=== PATIENT | female | born 1995 | race Caucasian/White ===

== ENCOUNTER 2020-09-01 10:03 | Inpatient (IN) | payer MEDICAID, SELFPAY ==
[~2020-09-01] VITALS: Ht 167.6 cm; Wt 44.5 kg
[2020-09-01 10:07] VITALS: BP 140/90
--- NOTE | 2020-09-01 10:15 | NUR ---
PT W/C ASSISTED TO BED 11
--- NOTE | 2020-09-01 10:25 | NUR ---
25 Y/O FEMALE BIB FAMILY C/O ABD PAIN 01/12 THAT STARTED YESTERDAY. PT STATES SHE IS NOT ABLE TO DESCRIBE WHAT THE PAIN FEELS LIKE, ONLY STATES "IT FEELS LIKE IM GOING TO ". PT DENIES TAKING ANYTHING FOR PAIN. +N/V, PER PT 24TIMES IN 24H. ABD IS FLAT, SOFT, AND TENDER ON PALPATION WITH ACTIVE BOWEL SOUNDS X4 QUADS. PT IS GUARDING. PT DENIES DIARRHEA. PT STATES THAT SHE IS DEPRESSED HER MOM 07/26/20. PT IS VERY THIN. DENIES EATING DISORDER, DENIES SUICIDAL THOUGHTS, AND DENIES NOT EATING TO HURT HERSELF. WHEN ASKED WHEN WAS THE LAST TIME SHE ATE, "I DONT KNOW, I DONT EAT". SKIN IS WARM DRY AND INTACT. PT A/O X4 WITH EVEN AND UNLABORED RESPIRATIONS. PT IN GOWN AND ON PROCESS CONTROLLER. PT GIVEN EMESIS BAG. DENIES PMH NKA
--- NOTE | 2020-09-01 10:29 | NUR ---
DR BENAVIDES AT BEDSIDE EVALUATING PT
[2020-09-01] MEDS ORDERED: MORPHINE SULFATE 4 MG/ML SYR IVP ONE (10:35)
[2020-09-01] MEDS ORDERED: ONDANSETRON 4 MG/2 ML VIAL IVP ONE (10:35)
[2020-09-01] MEDS ORDERED: NACL 0.9% 1,000 ML IV ONE (10:35)
--- NOTE | 2020-09-01 10:40 | NUR ---
20 G IV ESTABLISHED. BLOOD DRAW COLLECTED THROUGH IV AND SAMPLES GIVEN TO INCOMING FREIGHT CLERK
--- NOTE | 2020-09-01 10:47 | NUR ---
PT AMULATED WITH ASSIST TO RESTROOM FOR URINE SAMPLE
[2020-09-01 10:49] LABS: BASOPHILS % (AUTO) 0.2 % (0.0-2.0); HEMATOCRIT 44.6 % (36-48); HEMOGLOBIN 14.8 g/dL (12.0-16.0); LYMPHOCYTES % (AUTO) 7.9 % (20.5-51.1); MEAN CORPUSCULAR HEMOGLOBIN 31 pg (27-31); MEAN CORPUSCULAR HGB CONC 33 g/dL (33-37); MEAN CORPUSCULAR VOLUME 92.2 fL (80-94); MONOCYTES # (AUTO) 0.6 K/uL (0.8-1.0); MONOCYTES % (AUTO) 4.5 % (1.7-9.3); NEUTROPHILS # (AUTO) 11.4 K/uL (1.8-7.7); NEUTROPHILS % (AUTO) 87.4 % (42.2-75.2); PLATELET COUNT (AUTO) 158 K/uL (140-450); RED BLOOD CELL COUNT(AUTO) 4.84 MIL/uL (4.20-5.40); RED CELL DISTRIBUTION WIDTH 13.2 % (11.6-13.7)
[2020-09-01 10:58] LABS: ANION GAP 24.4 (8-16); CARBON DIOXIDE 24.4 mmol/L (21-32); CREATININE 1.1 mg/dL (0.6-1.3); POTASSIUM 3.8 mmol/L (3.5-5.1)
[2020-09-01 11:04] LABS: ALBUMIN 5.4 g/dL (3.4-5.0); TOTAL BILIRUBIN 0.8 mg/dL (0.0-1.0)
--- NOTE | 2020-09-01 11:19 | NUR ---
PT TAKEN TO CT VIA W/C
--- NOTE | 2020-09-01 11:36 | NUR ---
PT BACK FROM CT, CONNECTED TO MONITOR AND FLUIDS
[2020-09-01 11:39] LABS: APPEARANCE,URINE HAZY (CLEAR); BILIRUBIN,URINE 1+ (NEGATIVE); BLOOD, URINE 1+ (NEGATIVE); COLOR,URINE YELLOW (YELLOW); NITRITE, URINE NEGATIVE (NEGATIVE); PH,URINE 6.5 (5.0-9.0); UGLUCOSE NEGATIVE (NEGATIVE)
[2020-09-01 11:55] LABS: LEUKOCYTE ESTERASE ,URINE 1+ (NEGATIVE)
[2020-09-01 11:56] LABS: RBC,URINE 0-5 /HPF (0-5)
[2020-09-01 11:57] LABS: WBC,URINE 20-60 /HPF (0-5)
[2020-09-01] MEDS ORDERED: DEXT 5% / NACL 0.45% 1,000 ML IV ONE (12:15)
[2020-09-01] MEDS ORDERED: cefTRIAXone 1,000 MG VIAL ONE (12:37)
--- NOTE | 2020-09-01 12:48 | NUR ---
PT RESTING IN BED WITH EVEN AND UNLABORED RESPIRATIONS. PT DENIES PAIN AT THIS TIME. PT ON GRAVE CLEANER, VSS. BED IN LOWEST POSITION, BRAKES LOCKED, X1 SIDERAIL UP. WILL CONTINUE TO MONITOR.
[2020-09-01] MEDS ORDERED: POTASSIUM CHL 10 MEQ/D5-1/2NS 1,000 ML IV ONE (13:00)
[2020-09-01 13:36] LABS: MAGNESIUM 2.2 mg/dL (1.8-2.4)
--- NOTE | 2020-09-01 13:53 | NUR ---
EMBER DEAL SAMPLE COLLECTED AND WALKED TO LAB
[2020-09-01] MEDS ORDERED: ACETAMINOPHEN 325 MG TAB PO PRN (14:00)
[2020-09-01] MEDS ORDERED: LORazepam 2 MG/ML VIAL IM/IVP PRN (14:00)
[2020-09-01] MEDS ORDERED: ZOLPIDEM 5 MG TAB PO PRN (14:00)
[2020-09-01] MEDS ORDERED: HYDROcodone/APAP 5/325 MG 1 TAB TAB PO PRN (14:00)
[2020-09-01] MEDS ORDERED: DOCUSATE SODIUM 100 MG GELCAP PO PRN (14:00)
--- NOTE | 2020-09-01 14:37 | NUR ---
US AT BEDSIDE
[2020-09-01] MEDS: NACL 0.9% 1,000 ML IV SCH ×2 (14:54→23:41)
--- NOTE | 2020-09-01 15:10 | NUR ---
RAD AT BEDSIDE
--- NOTE | 2020-09-01 16:30 | NUR ---
DR TREVINO AT BEDSIDE
[2020-09-01 16:59] LABS: BARBITURATE, URINE NEGATIVE ng/ml (NEG <=200); BENZODIAZEPINE, URINE NEGATIVE ng/mL (NEG <=200); CANNABINOID, URINE POSITIVE ng/mL (NEG <=50); COCAINE, URINE NEGATIVE ng/mL (NEG <=300); OPIATE, URINE NEGATIVE ng/mL (NEG <=2000); PHENCYCLIDINE SCREEN,URINE NEGATIVE ng/mL (NEG <=25)
--- NOTE | 2020-09-01 17:57 | NUR ---
PT GIVEN DINNER TRAY. PT IS SITTING IN BED WITH EVEN AND UNLABORED RESPIRATIONS. DENIES PAIN.
[2020-09-01 18:20] LABS: FREE T4 (FREE THYROXINE) 1.08 ng/dL (0.76-1.46); THYROID STIMULATING HORMONE 1.47 uIU/mL (0.34-3.74)
[2020-09-01] MEDS: ONDANSETRON 4 MG/2 ML VIAL IVP PRN ×2 (18:54→21:00)
[2020-09-01 18:57] LABS: CHOL/HDL RATIO 3.4 (1-4.5)
--- NOTE | 2020-09-01 19:14 | NUR ---
GAVE REPORT TO CESILIA ORTIZ, TRANSFER OF CARE AT THIS TIME.
--- NOTE | 2020-09-01 19:44 | NUR ---
report given to Niya ORTIZ from Tele unit . pt currently a/o x 4, gcs 15. able to move all extremities freely. IV sites patent.
--- NOTE | 2020-09-01 19:45 | NUR ---
pt will be admitted to [facility] under the care of Dr. Aguilar. report given to Niya ORTIZ. belongings to be sent with pt. IV sites are patent.
--- NOTE | 2020-09-01 19:55 | NUR ---
RECEIVED REPORT FROM ER NURSE. PT IS AWAKE ,ALERT, ORIENTED X4, NO ACUTE DISTRESS NOTED. RESPIRATION EVEN UNLABORED. CC: ABDOMINAL PAIN FOR 2-3DAYS WITH NAUSEA. DX: PANCREATITIS, GASTRITIS, UTI, APPENDICITIS. LUNGS CLEAR ON AUSCULTATION. BOWEL SOUNDS PRESENT IN ALL 4 QUADRANT. DENIES PAIN. NEEDS WELL ATTENDED. MRSA SCREENING DONE. WILL CONTINUE TO MONITOR.
--- NOTE | 2020-09-01 21:03 | NUR ---
PT [id number] OF NAUSEA AND VOMITING, ZOFRAN PRN ADMINISTERED PER MD ORDERED.
[2020-09-02] VITALS: BP 112/67
[2020-09-02 04:00] VITALS: BP 113/76
[2020-09-02 06:02] LABS: BASOPHILS % (AUTO) 0.2 % (0.0-2.0); EOSINOPHILS % (AUTO) 0.1 % (0.0-4.0); HEMATOCRIT 34.9 % (36-48); HEMOGLOBIN 11.6 g/dL (12.0-16.0); LYMPHOCYTES # (AUTO) 2.2 K/uL (2.5-16.5); LYMPHOCYTES % (AUTO) 25.6 % (20.5-51.1); MEAN CORPUSCULAR HEMOGLOBIN 31 pg (27-31); MEAN CORPUSCULAR HGB CONC 33 g/dL (33-37); MEAN CORPUSCULAR VOLUME 92.7 fL (80-94); MONOCYTES # (AUTO) 0.5 K/uL (0.8-1.0); MONOCYTES % (AUTO) 6.4 % (1.7-9.3); NEUTROPHILS # (AUTO) 5.7 K/uL (1.8-7.7); NEUTROPHILS % (AUTO) 67.7 % (42.2-75.2); PLATELET COUNT (AUTO) 106 K/uL (140-450); RED BLOOD CELL COUNT(AUTO) 3.76 MIL/uL (4.20-5.40); RED CELL DISTRIBUTION WIDTH 13.3 % (11.6-13.7); WHITE BLOOD COUNT (AUTO) 8.4 K/uL (4.8-10.8)
[2020-09-02 06:12] LABS: MAGNESIUM 1.8 mg/dL (1.8-2.4); PHOSPHORUS 2.7 mg/dL (2.5-4.9)
--- NOTE | 2020-09-02 07:40 | NUR ---
RECEIVED BEDSIDE REPORT FROM DRY CHAIN OFFBEARER NURSE. PATIENT RIGHT LATERAL IN BED, SLEEPING, ANSWERS TO NAME, AND ABLE TO MAKE NEEDS KNOWS. BREATHING EVEN AND UNLABORED, NO SINGS OF ACUTE DISTRESS NOTED, ON RA. L FA 20G, INFUSING NS @ 100 ML/HR. BED IN LOW POSITION, HIGH MAN IN PLACE, SAFETY MEASURES IN PLACE.
[2020-09-02 07:43] LABS: ANION GAP 12.8 (8-16); CREATININE 0.9 mg/dL (0.6-1.3); POTASSIUM 3.8 mmol/L (3.5-5.1)
[2020-09-02 08:00] VITALS: BP 108/65
--- NOTE | 2020-09-02 09:47 | NUR ---
DR TREVINO AT BEDSIDE, ROUNDING ON PATIENT. [facility] THIS AM OF 8.2, DR TREVINO AWARE, NO NEW ORDERS.
[2020-09-02] MEDS: NACL 0.9% 1,000 ML IV SCH ×2 (10:00→20:25)
--- NOTE | 2020-09-02 11:20 | NUR ---
PATIENT HAS BEEN SCREENED AND CATEGORIZED HIGH NUTRITION RISK. PATIENT WILL BE SEEN WITHIN 1-2 DAYS OF ADMISSION. 09/02/20 - 09/03/20 WILI SEPULVEDA MBA, RD
[2020-09-02 12:00] VITALS: BP 108/72
[2020-09-02 16:00] VITALS: BP 123/87
--- NOTE | 2020-09-02 19:25 | NUR ---
ENDORSED TO [facility]IMAL [facility] OFFICE SUPERVISOR NURSE FOR CONTINUITY OF CARE. PATIENT STABLE AT THIS TIME.
[2020-09-02 20:00] VITALS: BP 108/65
--- NOTE | 2020-09-02 20:00 | NUR ---
RECEIVED REPORT FROM DAY SHIFT RN; PT AWAKE SITTING UP IN BED, NO ACUTE DISTRESS NOTED @ THIS TIME. PT AAOX4, DEPRESSED R/T MOTHERS . PT DENIES SUICIDAL IDEATION. PT AMB IN ROOM. SR ON MONITOR, PALPABLE PULSES. LUNGS CLEAR TO AUSCULTATION. ABD SOFT NON DISTENDED. SKIN INTACT. IV TO L FA PATENT INTACT. BED LOCKED IN LOWEST POSITION WILL CONTINUE TO OBSERVE
[2020-09-02] MEDS: MORPHINE SULFATE 2 MG/ML SYR IVP PRN (21:43)
--- NOTE | 2020-09-02 22:00 | NUR ---
PT UPDATED REGARDING PLAN OF CARE. NO S/S OF ACUTE DISTRESS NOTED. WILL CONTINUE TO OBSERVE.
[2020-09-03] VITALS: BP 103/68
--- NOTE | 2020-09-03 00:15 | NUR ---
PT AWAKE SITTING UP IN BED, WATCHING TELEVISION. PT DENIES PAIN @ THIS TIME. WILL CONTINUE TO MONITOR.
--- NOTE | 2020-09-03 03:00 | NUR ---
PT HAS EYES CLOSED; NO ACUTE DISTRESS NOTED. WILL CONTINUE TO OBSERVE.
[2020-09-03 04:00] VITALS: BP 115/72
--- NOTE | 2020-09-03 06:00 | NUR ---
PT REFUSED LABS THIS AM.
[2020-09-03] MEDS: NACL 0.9% 1,000 ML IV SCH ×3 (06:15→18:06)
--- NOTE | 2020-09-03 07:20 | NUR ---
RECEIVED PATIENT FROM NIGHT NURSE. PATIENT IN BED AWAKE AND ALERT. RESP EVEN AND UNLABORED ON ROOM AIR. DENIED OF PAIN AT THIS TIME. PATIENT ABLE TO AMBULATE WITH STEADY GAIT TO THE BATHROOM. NO SUICIDAL IDEATION AT THIS TIME. PATIENT ABLE TO MAKE NEEDS KNOWN. LFA 20G INFUSING NS 100ML/HR. PLAN OF CARE DISCUSSED, PATIENT VERBALIZED UNDERSTANDING. HOB ELEVATED. SAFETY MEASURES IN PLACE. CALL LIGHT WITHIN REACH. WILL CONTINUE TO MONITOR.
[2020-09-03 08:00] VITALS: BP 136/79
--- NOTE | 2020-09-03 09:15 | NUR ---
PATIENT IN BED AWAKE AND ALERT. RESP EVEN AND UNLABORED ON ROOM AIR. DENIED OF PAIN AT THIS TIME. PATIENT ABLE TO MAKE NEEDS KNOWN. LFA 20G INTACT AND PATENT INFUSING NS 100ML/HR. NO NOTED DISTRESS AT THIS TIME. PLAN OF CARE DISCUSSED, PATIENT VERBALIZED UNDERSTANDING. CALL LIGHT WITHIN REACH. WILL CONTINUE TO MONITOR.
--- NOTE | 2020-09-03 11:45 | NUR ---
PATIENT IN BED WATCHING TV, COMFORTABLE AT THIS TIME. DR TEAGUE SEEN PATIENT. NO CONCERNS AT THIS TIME. PATIENT DENIED OF PAIN OR DISCOMFORT. CALL LIGHT WITHIN REACH. WILL CONTINUE TO MONITOR.
[2020-09-03 12:00] VITALS: BP 131/89
--- NOTE | 2020-09-03 13:49 | NUR ---
PATIENT REQUESTED TO HAVE REGULAR DIET. DR JAIME MADE AWARE AND APPROVED ORDER. ORDER CARRIED OUT.
--- NOTE | 2020-09-03 14:11 | NUR ---
PATIENT STATED FEELING ANXIOUS AND ASKING FOR HER PLAN OF CARE. DR JAIME WAS MADE AWARE AND WILL POSSIBLE DISCHARGE PATIENT TOMORROW. DR TEAGUE HAD SEEN PATIENT AND DID NOT PLACE A 5150 AT THIS TIME. PATIENT MADE AWARE OF DR JAIME PLAN. PATIENT REQUESTING TO LEAVE AGAINST MEDICAL ADVICE. DR JAIME MADE AWARE.
--- NOTE | 2020-09-03 14:35 | NUR ---
PATIENT WAS INFORMED OF RISKS OF LEAVING AMA. PATIENT WAS ALLOWED TIME TO MAKE HER DECISION. WILL CONTINUE TO MONITOR.
--- NOTE | 2020-09-03 14:43 | NUR ---
09/03/20 RD INITIAL ASSESSMENT COMPLETED PLEASE REFER TO NUTRITION ASSESSMENT UNDER CARE ACTIVITY FOR ESTIMATED NUTRITIONAL NEEDS. 1. CONTINUE REGULAR DIET TOLERATED 2. RECOMMENDED ENSURE TID VANILLA 3. [facility] WILL PROVIDE PATIENTS FOOD PREFERENCE 4. ENCOURAGE PO INTAKE OVER 50% 5. RD TO FOLLOW-UP 2-3 DAYS, HIGH RISK RENNY LIU, RD
--- NOTE | 2020-09-03 15:50 | NUR ---
PATIENT DECIDED TO STAY. DR JAIME MADE AWARE.
[2020-09-03 16:00] VITALS: BP 120/74
--- NOTE | 2020-09-03 18:10 | NUR ---
PATIENT IN BED WATCHING TV. RESP EVEN AND UNLABORED ON ROOM AIR. DENIED ANY PAIN OR DISCOMFORT. PATIENT IN BETTER MOOD. DINNER TRAY GIVEN. PATIENT ENCOURAGED TO EAT TOLERATED AND CALL FOR HELP NEEDED. PATIENT VERBALIZED UNDERSTANDING. CALL LIGHT WITHIN REACH. WILL CONTINUE TO MONITOR.
--- NOTE | 2020-09-03 19:15 | NUR ---
ENDORSED PATIENT TO NIGHT NURSE. PATIENT IN STABLE CONDITION.
--- NOTE | 2020-09-03 19:20 | NUR ---
RECEIVED BEDSIDE REPORT FROM JAISON ANDERSON RN FOR CONTINUITY OF CARE. PT IS AWAKE AND ALERT, A&OX4. LAYING IN SUPINE POSITION WITH BREATHING UNLABORED. ON RA. PT IS AMBULATORY INDEPENDENTLY. UNIVERSAL PRECAUTIONS IN PLACE. SKIN IS WARM, DRY, AND INTACT. IV IS IN THE LEFT FOR 22 GAUGE RUNNING NS AT 100 ML PER HOUR PER ORDER. STANDARD PRECAUTIONS IN PLACE. PT IS STABLE. PLAN OF CARE DISCUSSED.
[2020-09-03 20:00] VITALS: BP 110/75
[2020-09-03] MEDS: ONDANSETRON 4 MG/2 ML VIAL IVP PRN (20:16)
[2020-09-03] MEDS: MORPHINE SULFATE 2 MG/ML SYR IVP PRN (20:16)
--- NOTE | 2020-09-03 20:16 | NUR ---
PT STATES SHE HAS PAIN IN HER LOWER ABDOMEN THAT IS SHARP AND AT A SCALE OF 8/10. PT WAS GIVEN MORPHINE IVP FOR SEVERE PAIN. BP WAS 110/75 PRIOR TO ADMINISTRATION OF MEDICATION. PT ALSO STATES SHE IS NAUSEOUS AND WAS GIVEN ZOFRAN IVP. MEDICATION EDUCATION WAS PROVIDED AND PT VERBALIZED UNDERSTANDING.
[2020-09-03] MEDS ORDERED: MIRTAZAPINE 15 MG TAB PO SCH (21:00)
--- NOTE | 2020-09-03 22:00 | NUR ---
PT IS SLEEPING IN SUPINE POSITION. CHEST RISE AND FALL IS SYMMETRICAL. BEDSIDE TABLE WITHIN REACH. PT DOES NOT APPEAR TO BE IN ANY PAIN OR DISTRESS. IV FLUIDS ARE INFUSING. WILL CONTINUE TO MONITOR.
[2020-09-04] VITALS: BP 95/64
--- NOTE | 2020-09-04 | NUR ---
PT IS ASLEEP BUT AWOKE EASILY BY NOISE. ANSWERED QUESTIONS APPROPRIATELY. ALERT, A&OX4. ON RA WITH BREATHING UNLABORED. PT IS STABLE. NO COMPLAINTS AT THIS TIME.
--- NOTE | 2020-09-04 02:39 | NUR ---
PT IS SLEEPING. BREATHING IS REGULAR AND UNLABORED. IV FLUIDS ARE INFUSING. IV IS PATENT AND INTACT. BLANKET WAS PROVIDED FOR COMFORT. NO DISTRESS NOTED.
[2020-09-04 04:00] VITALS: BP 118/72
--- NOTE | 2020-09-04 04:30 | NUR ---
IV FLUIDS WERE REPLACED. IV IS PATENT AND INTACT. PT DENIES PAIN AT THE SITE. PT IS AWAKE AND ALERT. NO DISTRESS NOTED. WILL CONTINUE TO MONITOR.
--- NOTE | 2020-09-04 06:15 | NUR ---
PT STABLE. NO DISTRESS NOTED. PT DENIES PAIN AT THIS TIME. BREATHING IS EVEN AND UNLABORED. PT IS BACK TO SLEEP.
--- NOTE | 2020-09-04 07:15 | NUR ---
ENDORSED PT TO DAY SHIFT NURSE FOR CONTINUITY OF CARE. PT IS STABLE AT THIS TIME. PLAN OF CARE DISCUSSED.
--- NOTE | 2020-09-04 07:16 | NUR ---
RECEIVED REPORT FROM RECONNAISSANCE CREWMEMBER NURSE. PATIENT SITTING IN BED. NO DISTRESS NOTED. DENIES ANY PAIN. AAOX4, CALM, COOPERATIVE, ABLE TO AMBULATE, ON ROOM AIR. IV SITE INTACT, PATENT, AND INFUSING IVF PER MD ORDERS. REVIEWED PLAN OF CARE WITH PATIENT. PATIENT VERBALIZED UNDERSTANDING. SAFETY MEASURES IN PLACE, CALL LIGHT WITHIN REACH. WILL CONTINUE TO MONITOR.
[2020-09-04 08:00] VITALS: BP 115/69
--- NOTE | 2020-09-04 08:47 | NUR ---
PATIENT AMBULATED TO BATHROOM AND BACK TO BED. NO DISTRESS NOTED. WATCHING TV. WILL CONTINUE TO MONITOR.
[2020-09-04] MEDS ORDERED: MIRT-91 PO (10:10)
[2020-09-04] MEDS ORDERED: CEPH250C16 PO (10:10)
--- NOTE | 2020-09-04 11:50 | NUR ---
DISCHARGE INSTRUCTIONS PROVIDED TO PATIENT IN PREFERRED LANGUAGE OF ESTONIAN. INSTRUCTIONS ON FOLLOW-UP WITH PCP, PSYCHOLOGIST, NEW MEDICATION REGIMEN AND SIDE EFFECTS, AND TO HAVE ADEQUATE NUTRITIONAL CALORIC DAILY INTAKE. ANSWERED ALL OF PATIENT'S QUESTIONS REGARDING DISCHARGE. IV SITE REMOVED WITH MINIMAL BLOOD AND LUMEN COMPLETELY INTACT. ID BANDS REMOVED. PATIENT'S FAMILY MEMBER AT [facility] TO TAKE PATIENT HOME. ESCORTED PATIENT DOWN TO [facility] VIA STEADY AMBULATION. PATIENT DISCHARGED AT THIS TIME IN STABLE CONDITION.
== END 2020-09-04 11:50 | disposition home or self-care (01) | DRG 282 ==
LOC: MED 10:03 → MTU 14:04
PROVIDERS: ADMIT Family Medicine; ATTEND Family Medicine
DX: K85.90 Acute pancreatitis without necrosis or infection, unspecified (principal); D69.6 Thrombocytopenia, unspecified; E87.8 Other disorders of electrolyte and fluid balance, not elsewhere classified; F33.2 Major depressive disorder, recurrent severe without psychotic features; E88.89 Other specified metabolic disorders; E83.51 Hypocalcemia; N28.1 Cyst of kidney, acquired; T73.0XXA Starvation, initial encounter; N39.0 Urinary tract infection, site not specified; Z20.822 Contact with and (suspected) exposure to COVID-19; F12.90 Cannabis use, unspecified, uncomplicated; E87.6 Hypokalemia; E87.1 Hypo-osmolality and hyponatremia; X58.XXXA Exposure to other specified factors, initial encounter; R91.1 Solitary pulmonary nodule; D64.9 Anemia, unspecified; Z91.5 Personal history of self-harm
CPT/HCPCS: 36415; 71045; 71250; 76705; 80048; 80053; 80305; 81001; 82150; 83036; 83605; 83690; 83735; 83880; 84100; 84439; 84443; 84484; 85025; 85610; 85730; 87040; 87081; 87086; 93005; 96361; 96365; 96375; 99285; J0696; J2060; J2270; J2405; J7060; Q9967